=== PATIENT | female | born 1970 | race Caucasian/White ===

== ENCOUNTER 2016-10-31 11:34 | Emergency (ER) | payer MEDICAID ==
--- NOTE | 2016-10-31 12:54 | EDPHY ---
H & P Smoking Status: Current every day smoker Time Seen by Provider: 10/31/16 12:35 HPI/ROS: CHIEF COMPLAINT: Multiple open wounds from substance abuse and low back pain HISTORY OF PRESENT ILLNESS: 46-year-old female presents to the emergency department by private vehicle concerns about multiple open wounds to her upper extremities and her left breast. The patient has a history of IV heroin abuse. She was sober for many years and then relapsed 2 days ago. She has had multiple open sores that are not healing and becoming increasingly painful. She is starting to pick at them and trying to cut the open to help relieve pressure. She denies fevers or chills. Denies any other reported trauma. She is also complaining of some low back pain. She has a history of chronic pain in her back but she is concerned that she may have a kidney infection. She has no urinary symptoms. No nausea or vomiting. No chest pain or difficulty breathing. REVIEW OF SYSTEMS: Constitutional: No fever, no chills. Eyes: No double or blurry vision. ENT: No sore throat. Respiratory: No cough, no shortness of breath. Cardiac: No chest pain. Gastrointestinal: No abdominal pain, vomiting or diarrhea. Genitourinary: No dysuria. Musculoskeletal: Low back pain. No neck pain. Skin: No rashes. Neurological: No headache. (Anabella Keenan) Past Medical/Surgical History: Neuropathy, plantar fasciitis, IV heroin abuse, chronic pain (Anabella Keenan) Social History: Single and lives in [place] (Anabella Keenan) Physical Exam: General Appearance: Alert, anxious. Afebrile temperature 36.5. Eyes: Pupils equal and round. Extraocular motions are all intact. ENT: Mouth: Mucous membranes moist. Respiratory: No wheezing, rhonchi, or rales, lungs are clear to auscultation. Cardiovascular: Regular rate and rhythm. Gastrointestinal: Abdomen is soft and nontender, no masses, no rebound or guarding, bowel sounds normal. Neurological: Alert and oriented x 3, cranial nerves II through XII grossly intact Skin: Multiple areas of excoriation to the upper extremities with some surrounding redness. No obvious palpable abscess. Diffusely tender to palpate. No signs of compartment syndrome. No lymphangitis. Full range of motion of her upper extremities. No signs of septic joint. There is also multiple excoriated lesions noted to the anterior aspect of the left breast just above the nipple. It is tender to palpate. There is no lymphangitis. Musculoskeletal: Nontender to palpate along the cervical, thoracic or lumbar spine. Neck is supple. Extremities: Full range of motion and no peripheral edema. See skin described above. Psychiatric: Patient is oriented X 3, there is no agitation. (Anabella Keenan) Constitutional: Initial Vital Signs Temperature (C) 36.5 C 10/31/16 11:38 Heart Rate 79 10/31/16 11:38 Respiratory Rate 20 10/31/16 11:38 Blood Pressure 126/65 H 10/31/16 11:38 O2 Sat (%) 97 10/31/16 11:38 O2 Delivery Mode Room Air Allergies/Adverse Reactions: quetiapine fumarate [From Seroquel] Allergy (Mild, Verified 10/31/16 11:38) dystonia Home Medications: Medication Instructions Recorded oxyCODONE IR [Oxycodone Ir (*)] 15 mg PO 5XD 12/11/10 Codeine/Butalbital/ASA/Caffein 1 each PO AD PRN 09/05/11 [FIORINAL WITH CODEINE #3 CAP] Morphine Sulfate [Avinza 30 mg] 30 mg PO TID PRN 09/05/11 Promethazine HCl [Phenergan 50mg 50 mg PO AD PRN 08/01/12 tab] KLONOPIN PO HS 03/25/14 Cephalexin [Keflex] 500 mg PO QID #28 cap 10/31/16 Sulfamethox/Tmp 800/160 mg 1 tab PO BID #14 tab 10/31/16 [Bactrim DS] Medical Decision Making ED Course/Re-evaluation: 46-year-old female with a history of substance abuse presents to the emergency department with multiple open wounds in source to upper extremities and left breast. I do not think this patient needs IV antibiotics. There is no signs of obvious abscess or anything to drain. She will be started on antibiotics. The patient was complaining of back pain although she does have a history of chronic back pain. She is worried about possible kidney infection. We are awaiting urine specimen. Urinalysis reveals no signs of infection. Upper extremities reveal no signs of compartment syndrome. The patient was given primary care referral. (Anabella Keenan) Differential Diagnosis: Including but not limited to cellulitis, abscess, necrotizing fasciitis, compartment syndrome (Anabella Keenan) Other Provider: The patient was evaluated and managed by the physician assistant finance director. I have reviewed this chart and I agree with the findings and plan of care as documented , as indicated by my signature. I am the secondary supervising physician. ( Kay Hernandez) Departure - Departure Disposition: Home, Routine, Self-Care Clinical Impression: Substance abuse, Cellulitis Condition: Good Instructions: Cellulitis (ED), Polysubstance Abuse (ED) Additional Instructions: Keflex and Bactrim as directed for 1 week. Please talk picking at the wounds as this may cause further infection. Apply warm compresses as discussed. Stop abusing drugs. Referrals: [facility] [Outside] - As per Instructions Kami Gay MD [Primary Care Provider] - 1-2 days without fail Prescriptions: Cephalexin [Keflex] 500 mg PO QID #28 cap Sulfamethox/Tmp 800/160 mg [Bactrim DS] 1 tab PO BID #14 tab
[2016-10-31 13:06] LABS: COLOR AMBER; LEUKOCYTE ESTERASE,URINE TRACE (NEGATIVE); NITRITE,URINE NEGATIVE (NEGATIVE)
[2016-10-31 13:11] LABS: BACTERIA 1+ /hpf (NONE SEEN); MUCUS TRACE /lpf (NONE-1+)
[2016-10-31 13:12] LABS: RBC,URINE NONE SEEN /hpf (0-3)
[2016-10-31 13:23] VITALS: TEMP 97.5
[2016-10-31 14:06] VITALS: BP 115/80; PULSE 78; RESP 16; O2SAT 95
== END 2016-10-31 14:12 | disposition home or self-care (01) ==
DX: L03.119 Cellulitis of unspecified part of limb (principal); F19.10 Other psychoactive substance abuse, uncomplicated; F17.200 Nicotine dependence, unspecified, uncomplicated

== ENCOUNTER 2017-06-03 07:00 | Emergency (ER) | payer MEDICAID ==
[2017-06-03 07:08] VITALS: RESP 16
--- NOTE | 2017-06-03 07:11 | EDPHY ---
H & P Stated Complaint: Med clear for [facility], sores on hands Time Seen by Provider: 06/03/17 07:09 HPI/ROS: CHIEF COMPLAINT: Hand sores HISTORY OF PRESENT ILLNESS: The patient is a 46 y/o female with a history of substance abuse arriving via [facility] for medical clearance due to sores on her hands. She was seen here in October for similar sores and was started on antibiotics. She tells me she relapsed onto IV drugs 5 days ago. She believes the sores on her hands are related to a fungal infection, though she was never started on a fungal treatment. She says she has been on antibiotics 7 times since her visit here 7 months ago, most recently 1 month ago. She complains of pain at the site of some of her lesions particularly the site on her right hand. She admits to occasionally trying to open these lesions. She has not had drainage from them recently. She states that she has requested a referral to a specialist, such as Dermatology or Infectious Disease, but that her primary care provider has not given her 1 because of the belief that these lesions are related to IV drug abuse. She also complains of a hoarse voice. She has a mild cough, no shortness of breath. She has not been aware of fever. REVIEW OF SYSTEMS: A ten point review of systems was performed and is negative with the exception of the items mentioned in the HPI. Past medical history: Chronic pain, substance abuse - IV heroin Past surgical history: Noncontributory Family history: Noncontributory Social history: Substance abuse. 3 cigarettes per day. Denies alcohol use. Lives in [place]. PCP: [facility]. General Appearance: Somnolent but arouses to spoken voice. Vital signs reviewed. Blood pressure 155/98. Poor personal hygiene. Eyes: Pupils equal and round, no conjunctival injection, no discharge. Anicteric. ENT, Mouth: Mucous membranes are dry, mild oropharyngeal erythema without edema. Hoarse voice. Neck: No lymphadenopathy, supple. Respiratory: Lungs are clear to auscultation; no wheezes, rales, or rhonchi. Cardiovascular: Regular rate and rhythm; no murmur, rub, or gallop. Gastrointestinal: Abdomen is soft and nontender, no masses or organomegaly. Skin: Warm and dry, no rashes on exposed skin, normal color. Multiple scabbed lesions over both arms, some with surrounding erythema and mild warmth. No fluctuance. No purulent drainage. There is a 1.5 x 2 cm area of erythema on the posterior aspect of her right hand. This was initially covered by a Band- Aid. There is some granulation tissue in the central portion of this region. Again, no fluctuance or active purulent drainage. Back: Nontender to palpation over the thoracolumbar spine. No CVAT. Extremities: No lower extremity edema, no calf tenderness or swelling. No lesions noted on the lower extremities, no lower extremity track koch including examination of the feet and between the toes. Neurological: Moving all four extremities easily and equally. Psychiatric: Normal affect. No agitation. - Personal History LMP (Females 10-55): Irregular Current Tetanus/Diphtheria Vaccine: Yes Current Tetanus Diphtheria and Acellular Pertussis (TDAP): Yes - Medical/Surgical History Hx Asthma: No Hx Chronic Respiratory Disease: No Hx Diabetes: No Hx Cardiac Disease: No Hx Renal Disease: No Hx Cirrhosis: No Hx Alcoholism: No Hx HIV/AIDS: No Hx Splenectomy or Spleen Trauma: No Other PMH: neuropathy, plantar fascitis, CHRONIC PAIN - Social History Smoking Status: Current every day smoker Constitutional: Initial Vital Signs Temperature (C) 36.5 C 06/03/17 07:03 Heart Rate 65 06/03/17 07:03 Respiratory Rate 16 06/03/17 07:03 Blood Pressure 155/98 H 06/03/17 07:03 O2 Sat (%) 97 06/03/17 07:03 O2 Delivery Mode Room Air Allergies/Adverse Reactions: quetiapine fumarate [From Seroquel] Allergy (Mild, Verified 06/03/17 07:03) dystonia Home Medications: Medication Instructions Recorded oxyCODONE IR [Oxycodone Ir (*)] 15 mg PO 5XD 12/11/10 Codeine/Butalbital/ASA/Caffein 1 each PO AD PRN 09/05/11 [FIORINAL WITH CODEINE #3 CAP] Morphine Sulfate [Avinza 30 mg] 30 mg PO TID PRN 09/05/11 Promethazine HCl [Phenergan 50mg 50 mg PO AD PRN 08/01/12 tab] KLONOPIN PO HS 03/25/14 Cephalexin [Keflex] 500 mg PO QID #28 cap 10/31/16 Sulfamethox/Tmp 800/160 mg 1 tab PO BID #14 tab 10/31/16 [Bactrim DS] Doxycycline Hyclate [Doxycycline] 100 mg PO BID #14 cap 06/03/17 Medical Decision Making ED Course/Re-evaluation: This is a 46 y/o female with a history of IV drug abuse who presents in the custody of PD with scattered scabbed lesions on both arms and hands. She is afebrile here. Some lesions are warm and mildly erythematous, but there is no evidence of abscess. These are consistent with IV drug abuse. I counseled her to stop injecting to prevent recurrent and worsening sores. I will start her on doxycycline and discharge her with referral to ID to determine best long- management since she reports this is her 8th time on antibiotics in the last 7 months. In the past she is taking Keflex and Bactrim with no improvement. I tend to agree with her primary care provider, who feels that these lesions would clear up if she stops IVDA. I think that poor personal hygiene is also an issue. I do not see signs of bacterial endocarditis or other serious infection on physical exam. Return precautions discussed. She is noted to be hypertensive in the emergency department. She also appears somewhat dehydrated. I am encouraging oral fluids. She has a slightly hoarse voice but does not complain of sore throat. Her throat is mildly erythematous. I do not feel that this needs additional treatment. There is no airway compromise. She is not hypoxic and does not complain of feeling shortness of breath. She has not had chest pain. I do not suspect influenza or pneumonia. She is in police custody. Departure - Departure Disposition: Home, Routine, Self-Care Clinical Impression: Substance abuse Cellulitis Qualifiers: Site of cellulitis: extremity Site of cellulitis of extremity: upper extremity Laterality: unspecified laterality Qualified Code(s): L03.119 - Cellulitis of unspecified part of limb Condition: Good Instructions: Doxycycline (By mouth), Cellulitis (ED), Polysubstance Abuse (ED) Additional Instructions: 1. Take doxycycline as prescribed. Be sure to complete entire prescription. 2. Use Tylenol or ibuprofen as directed on the packaging if needed for fever or pain. 3. Follow up with infectious disease doctor and your primary care physician next week. 4. Stop abusing drugs. Referrals: Kami Gay MD [Primary Care Provider] - As per Instructions Margarita Smith MD [Medical Doctor] - As per Instructions Prescriptions: Doxycycline Hyclate [Doxycycline] 100 mg PO BID #14 cap Report Scribed for: Kay Hernandez Report Scribed by: Emi Jackson Date of Report: 06/03/17 Time of Report: 07:35 Physician Review and Approval Statement: 06/03/17 07:11 Portions of this note were transcribed by the biomedical engineering director. I, Dr. Kay Hernandez, personally performed the history, physical exam, and medical decision- making; and confirmed the accuracy of the information in the transcribed note.
[2017-06-03 07:58] VITALS: BP 110/75; PULSE 78; TEMP 96.8; O2SAT 100
== END 2017-06-03 08:00 ==
DX: L03.114 Cellulitis of left upper limb (principal); L03.113 Cellulitis of right upper limb; F19.10 Other psychoactive substance abuse, uncomplicated; F17.210 Nicotine dependence, cigarettes, uncomplicated

== ENCOUNTER 2017-06-20 22:31 | Emergency (ER) | payer MEDICAID ==
[2017-06-20 22:38] VITALS: BP 141/78; PULSE 76; RESP 18; TEMP 97.5
[2017-06-20] MEDS ORDERED: ONDANSETRON DISINTEGRATING 4 MG TAB PO ONE (23:21)
[2017-06-20] MEDS ORDERED: ONDANSETRON DISINTEGRATING 4 MG TAB ONE (23:22)
--- NOTE | 2017-06-20 23:32 | EDPHY ---
H & P Stated Complaint: c/o ongoing nausea x 3 days Time Seen by Provider: 06/20/17 23:01 HPI/ROS: Chief Complaint: Nausea, skin abscess HPI: 46-year-old woman with a history of IV drug abuse presenting with 3-4 days of nausea, no vomiting. Patient is also complaining a multiple lesions on her arms. These have been treated for multiple many months. She has taken multiple doses of Bactrim Keflex. Patient states she has had a worsening lesion in her left forearm for the last week or so. She states she has not used any IV drugs since March 25. She is continuing to scratching pick at them and squeeze the try to get the infection out however. Denies any fevers or chills. No abdominal pain. No chest pain or shortness of breath. ROS: 10 point Review of Systems is negative except as noted in the HPI. PMH: IV drug abuse, hepatitis-C, cellulitis Social History: Positive smoking Family History: non-contributory Physical Exam: Gen: Awake, Alert, No Distress HEENT: Nose: no rhinorrhea Eyes: PERRLA, EOMI Mouth: Moist mucosa Neck: Supple, no JVD Chest: nontender, lungs clear to auscultation Heart: S1, S2 normal, no murmur Abd: Soft, non-tender, no guarding Back: no CVA tenderness, no midline tenderness Ext: no edema, non-tender, she has got multiple excoriated scabbed over lesions on bilateral arms and legs. There is a small area Estee in her left antecubital region approximately 1.5 cm in diameter. There is no surrounding erythema. There is fluctuance but no pointing. Skin: no rash Neuro: CN II-XII intact, Sensation grossly intact, Strength 5/5 in bilateral upper and lower extremities - Medical/Surgical History Hx Asthma: No Hx Chronic Respiratory Disease: No Hx Diabetes: No Hx Cardiac Disease: No Hx Renal Disease: No Hx Cirrhosis: No Hx Alcoholism: No Hx HIV/AIDS: No Hx Splenectomy or Spleen Trauma: No Other PMH: neuropathy bilat feet/hands, plantar fascitis, CHRONIC PAIN, hep c - Social History Smoking Status: Current every day smoker Constitutional: Initial Vital Signs Temperature (C) 36.4 C 06/20/17 22:34 Heart Rate 76 06/20/17 22:34 Respiratory Rate 18 06/20/17 22:34 Blood Pressure 141/78 H 06/20/17 22:34 O2 Sat (%) 99 06/20/17 22:34 O2 Delivery Mode Room Air Allergies/Adverse Reactions: quetiapine fumarate [From Seroquel] Allergy (Mild, Verified 06/20/17 22:38) dystonia Home Medications: Medication Instructions Recorded Codeine/Butalbital/ASA/Caffein 1 each PO AD PRN 09/05/11 [FIORINAL WITH CODEINE #3 CAP] Promethazine HCl [Phenergan 50mg 50 mg PO AD PRN 08/01/12 tab] Sulfamethox/Tmp 800/160 mg 1 tab PO BID #14 tab 10/31/16 [Bactrim DS] Doxycycline Hyclate [Doxycycline] 100 mg PO BID #14 cap 06/03/17 GABAPENTIN 06/20/17 Medical Decision Making Procedures: Procedure: Abscess drainage. The patient's abscess was located on the left arm. I obtained verbal consent from the patient to drain the abscess who was informed about the possibility of bleeding and pain. The abscess was incised with 11 blade scalpel and a small amount of purulent drainage was expressed. I irrigated the wound and placed some packing. The patient tolerated the procedure well. The procedure was performed by myself. ED Course/Re-evaluation: 46-year-old with a abscess her left forearm. Is likely sugars abscess but the patient denies IV drug use a Luana. She is continuing to scratching pick her lesions in this could also be secondary to that manipulation. There is no surrounding cellulitis at this time. There is no indication for antibiotics. She has an appoint with her doctor in 4 days. I have I and D did place some packing. I have told her to leave the dressing in place. She will follow up with physician and return for worsening. I have also given her Zofran here will send her home with a prepack. - Data Points Medications Given: Discontinued Medications Ondansetron HCl (Zofran Odt) 4 mg PO EDNOW ONE Stop: 06/20/17 23:22 Last Admin: 06/20/17 23:23 Dose: 4 mg Departure - Departure Disposition: Home, Routine, Self-Care Clinical Impression: Abscess, Nausea Condition: Good Instructions: Abscess (ED), Ondansetron (By mouth) Additional Instructions: You may take Zofran as needed for nausea. Leave the dressing in place until your seen by her primary care physician on the 4th. Return emergency department for increasing redness, fevers, chills, lightheadedness, fainting, uncontrolled vomiting, or any other concerns. Referrals: Kami Gay MD [Primary Care Provider] - As per Instructions
[2017-06-20] MEDS ORDERED: ONDANSETRON 4MG PREPACK#2 BTL TAKEHOME ONE (23:36)
[2017-06-20 23:54] VITALS: O2SAT 96
== END 2017-06-20 23:53 | disposition home or self-care (01) ==
PROC: 0H9DXZZ Drainage of Right Lower Arm Skin, External Approach (ICD-10-PCS; principal; 2017-06-20)
DX: L02.414 Cutaneous abscess of left upper limb (principal); F17.200 Nicotine dependence, unspecified, uncomplicated; R11.0 Nausea

== ENCOUNTER 2017-08-20 00:47 | Emergency (ER) | payer MEDICAID ==
--- NOTE | 2017-08-20 00:55 | EDPHY ---
H & P HPI/ROS: HPI CHIEF COMPLAINT: Heart fluttering, anxiety, peripheral edema HISTORY OF PRESENT ILLNESS: This patient very pleasant 46-year-old female, she has a history of IV drug use, last use in March of last year, hepatitis-C, which she tells me is cured, chronic pain, she comes emergency room tonight for intermittent palpitations over the past 10 days. Additionally she reports that she has noticed her whole body swelling intermittently over the past 10 days and then "pees it out "she states that her whole body swells and then gradually gets better with time. She denies any shortness of breath or chest pain. Denies pleuritic pain. She is adamant she has not done any drugs since March. She decided come the emergency room as she felt palpitations this evening and additionally thought she is more swollen than normal. This caused her anxiety and decided come for evaluation. Past Medical History: IV drug use, hepatitis-C, cellulitis, chronic pain, plantar fasciitis Past Surgical History: No recent surgical history. Social History: History of IV drug use, hepatitis-C. Denies current use of drugs. Denies being homeless. Family History: Noncontributory ROS REVIEW OF SYSTEMS: A comprehensive 10 point review of systems is otherwise negative aside from elements mentioned in the history of present illness. Exam Constitutional appears well nontoxic triage nursing summary reviewed, vital signs reviewed, awake/alert. Eyes normal conjunctivae and sclera, EOMI, PERRLA. HENT normal inspection, atraumatic, moist mucus membranes, no epistaxis, neck supple/ no meningismus, no raccoon eyes. Respiratory clear to auscultation bilaterally, normal breath sounds, no respiratory distress, no wheezing. Cardiovascular I do not appreciate a murmur on exam, rate normal, regular rhythm, no murmur, no edema, distal pulses normal. Gastrointestinal soft, non-tender, no rebound, no guarding, normal bowel sounds, no distension, no pulsatile mass. Genitourinary no CVA tenderness. Musculoskeletal no midline vertebral tenderness, full range of motion, no calf swelling, no tenderness of extremities, no meningismus, good pulses, neurovascularly intact. Skin extensive excoriations in scar sites down arms, various areas of dark pain med to the skin, no talon abscess or pus or cellulitis seen, no visible fresh track koch. Bilateral lower extremity does not show any significant edema. Neurologic awake, alert and oriented x 3, AAOx3, moves all 4 extremities equally, motor intact, sensory intact, CN II-XII intact, normal cerebellar, normal vision, normal speech. Psychiatric normal mood/affect. Heme/Lymph/Immune no lymphadenopathy. Differential Diagnosis: Includes but is not limited to in a particular order cardiac arrhythmia, acute coronary syndrome, PE, pneumonia, pleural effusion, endocarditis. Medical Decision Making: Plan for this patient IV establishment blood draw, full teletypesetter monitor, obtain EKG, chest x-ray, check troponin, TSH, and re- evaluate. Re-evaluation: EKG interpretation by me on record in [employer] system. Impression time of EKG 1:12 a.m., sinus rhythm rate of [address] ST depression. No significant T-wave abnormalities. Unremarkable nonischemic EKG. Similar to EKG dated 06/10/2011 0243: Patient re-evaluated resting comfortably no acute distress. Blood work has been reviewed this shows a normal troponin, negative D-dimer. EKG is nonischemic and there is no signs of cardiac arrhythmia on EKG. She has been on the teletypesetter monitor in the emergency room for several hours without any evidence of arrhythmia. She has no chest pain or shortness of breath. Allow her to be discharged from the emergency room I do recommend she follows up with Cardiology on outpatient basis for palpitations. Additionally I did discussed return precautions with her. She understands return emergency develops chest pain, shortness of breath, severe palpitations, fever vomiting. TSH was normal. Additionally as for her skin lesions I will prescribe her Keflex. She should follow up with primary care doctor about this. Source: Patient - Medical/Surgical History Hx Asthma: No Hx Chronic Respiratory Disease: No Hx Diabetes: No Hx Cardiac Disease: No Hx Renal Disease: No Hx Cirrhosis: No Hx Alcoholism: No Hx HIV/AIDS: No Hx Splenectomy or Spleen Trauma: No Other PMH: neuropathy bilat feet/hands, plantar fascitis, CHRONIC PAIN, hep c - Social History Smoking Status: Current every day smoker Constitutional: Initial Vital Signs Temperature (C) 36.9 C 08/20/17 00:52 Heart Rate 93 08/20/17 00:52 Respiratory Rate 16 08/20/17 00:52 Blood Pressure 139/89 H 08/20/17 00:52 O2 Sat (%) 94 08/20/17 00:52 O2 Delivery Mode Room Air Allergies/Adverse Reactions: quetiapine fumarate [From Seroquel] Allergy (Mild, Verified 06/20/17 22:38) dystonia Home Medications: Medication Instructions Recorded Promethazine HCl [Phenergan 50mg 50 mg PO AD PRN 08/01/12 tab] GABAPENTIN 06/20/17 Cephalexin [Keflex] 500 mg PO Q6H #28 cap 08/20/17 Medical Decision Making - Data Points Laboratory Results: Laboratory Results 08/20/17 01:30 08/20/17 01:30 08/20/17 08/20/17 08/20/17 01:50 01:30 01:30 WBC RBC Hgb Hct MCV MCH MCHC RDW Plt Count MPV Neut % (Auto) Lymph % (Auto) [place] % (Auto) Eos % (Auto) Baso % (Auto) Nucleat RBC Rel Count Absolute Neuts (auto) Absolute Lymphs (auto) Absolute Monos (auto) Absolute Eos (auto) Absolute Basos (auto) Absolute Nucleated RBC Immature Gran % Immature Gran # PT 14.0 SEC SEC (12.0-15.0) INR 1.06 (0.83-1.16) APTT 27.0 SEC SEC (23.0-38.0) D-Dimer 0.39 ug/mLFEU ug/mLFEU (0.00-0.50) Sodium 144 mEq/L mEq/L (135-145) Potassium 3.8 mEq/L mEq/L (3.5-5.2) Chloride 104 mEq/L mEq/L (97-110) Carbon Dioxide 23 mEq/l mEq/l (22-31) Anion Gap 17 mEq/L H mEq/L (8-16) BUN 16 mg/dL mg/dL (7-23) Creatinine 0.7 mg/dL mg/dL (0.6-1.0) Estimated GFR > 60 Glucose 114 mg/dL H mg/dL (70-100) Calcium 9.6 mg/dL mg/dL (8.5-10.4) Magnesium 1.7 mg/dL mg/dL (1.6-2.3) Total Bilirubin 0.5 mg/dL mg/dL (0.1-1.4) Conjugated Bilirubin 0.2 mg/dL mg/dL (0.0-0.5) Unconjugated Bilirubin 0.3 mg/dL mg/dL (0.0-1.1) AST 21 IU/L IU/L (14-46) ALT 25 IU/L IU/L (9-52) Alkaline Phosphatase 88 IU/L IU/L (38-126) Creatine Kinase 38 IU/L IU/L (0-156) CK-MB (CK-2) Fraction 0.56 ng/mL ng/mL (0.00-3.19) Troponin I < 0.012 ng/mL ng/mL (0.000-0.034) NT-Pro-B Natriuret Pep 148 pg/mL H pg/mL (0-125) Total Protein 7.4 g/dL g/dL (6.3-8.2) Albumin 4.1 g/dL g/dL (3.5-5.0) TSH 2.940 uIU/mL uIU/mL (0.465-4.680) Urine Color YELLOW Urine Appearance CLEAR Urine pH 5.0 (5.0-7.5) Ur Specific [place] 1.023 (1.002-1.030) Urine Protein NEGATIVE (NEGATIVE) Urine Ketones NEGATIVE (NEGATIVE) Urine Blood NEGATIVE (NEGATIVE) Urine Nitrate NEGATIVE (NEGATIVE) Urine Bilirubin NEGATIVE (NEGATIVE) Urine Urobilinogen NEGATIVE EU EU (0.2-1.0) Ur Leukocyte Esterase TRACE H (NEGATIVE) Urine RBC 1-3 /hpf /hpf (0-3) Urine WBC 1-3 /hpf /hpf (0-3) Ur Epithelial Cells TRACE /lpf /lpf (NONE-1+) Urine Mucus TRACE /lpf /lpf (NONE-1+) Urine Glucose NEGATIVE (NEGATIVE) Urine Opiates Screen NEGATIVE (NEGATIVE) Urine Barbiturates NEGATIVE (NEGATIVE) Ur Phencyclidine Scrn NEGATIVE (NEGATIVE) Ur Amphetamine Screen NEGATIVE (NEGATIVE) U Benzodiazepines Scrn NEGATIVE (NEGATIVE) Urine Cocaine Screen NEGATIVE (NEGATIVE) U Marijuana (THC) Screen NEGATIVE (NEGATIVE) 08/20/17 01:30 WBC 9.72 10^3/uL H 10^3/uL (3.80-9.50) RBC 4.75 10^6/uL 10^6/uL (4.18-5.33) Hgb 15.1 g/dL g/dL (12.6-16.3) Hct 41.2 % % (38.0-47.0) MCV 86.7 fL fL (81.5-99.8) MCH 31.8 pg pg (27.9-34.1) MCHC 36.7 g/dL g/dL (32.4-36.7) RDW 13.0 % % (11.5-15.2) Plt Count 259 10^3/uL 10^3/uL (150-400) MPV 8.6 fL L fL (8.7-11.7) Neut % (Auto) 37.2 % L % (39.3-74.2) Lymph % (Auto) 54.3 % H % (15.0-45.0) [place] % (Auto) 5.7 % % (4.5-13.0) Eos % (Auto) 2.0 % % (0.6-7.6) Baso % (Auto) 0.6 % % (0.3-1.7) Nucleat RBC Rel Count 0.0 % % (0.0-0.2) Absolute Neuts (auto) 3.62 10^3/uL 10^3/uL (1.70-6.50) Absolute Lymphs (auto) 5.28 10^3/uL H 10^3/uL (1.00-3.00) Absolute Monos (auto) 0.55 10^3/uL 10^3/uL (0.30-0.80) Absolute Eos (auto) 0.19 10^3/uL 10^3/uL (0.03-0.40) Absolute Basos (auto) 0.06 10^3/uL 10^3/uL (0.02-0.10) Absolute Nucleated RBC 0.00 10^3/uL 10^3/uL (0-0.01) Immature Gran % 0.2 % % (0.0-1.1) Immature Gran # 0.02 10^3/uL 10^3/uL (0.00-0.10) PT INR APTT D-Dimer Sodium Potassium Chloride Carbon Dioxide Anion Gap BUN Creatinine Estimated GFR Glucose Calcium Magnesium Total Bilirubin Conjugated Bilirubin Unconjugated Bilirubin AST ALT Alkaline Phosphatase Creatine Kinase CK-MB (CK-2) Fraction Troponin I NT-Pro-B Natriuret Pep Total Protein Albumin TSH Urine Color Urine Appearance Urine pH Ur Specific [place] Urine Protein Urine Ketones Urine Blood Urine Nitrate Urine Bilirubin Urine Urobilinogen Ur Leukocyte Esterase Urine RBC Urine WBC Ur Epithelial Cells Urine Mucus Urine Glucose Urine Opiates Screen Urine Barbiturates Ur Phencyclidine Scrn Ur Amphetamine Screen U Benzodiazepines Scrn Urine Cocaine Screen U Marijuana (THC) Screen Departure - Departure Disposition: Home, Routine, Self-Care Clinical Impression: Palpitations Condition: Good Instructions: Heart Palpitations (ED) Additional Instructions: 1. Please follow up with Cardiology. Please call their for follow-up appointment 2. Return emergency room if you have worsening symptoms this includes shortness of breath, chest pain, worsening swelling Referrals: Kami Gay MD [Primary Care Provider] - As per Instructions Joao Richardson MD [Medical Doctor] - As per Instructions Prescriptions: Cephalexin [Keflex] 500 mg PO Q6H #28 cap
[2017-08-20 00:58] VITALS: RESP 16
--- NOTE | 2017-08-20 01:15 | CPEKG ---
Heart Rate: 88 RR Interval: 682 P-R Interval: 168 QRSD Interval: 92 QT Interval: 364 QTC Interval: 441 P [place]: 55 QRS [place]: -4 T Wave [place]: 54 EKG Severity - BORDERLINE ECG - EKG Impression: SINUS RHYTHM EKG Impression: PROBABLE LEFT ATRIAL ABNORMALITY Electronically Signed By: Pio Maynard 20-Aug-2017 07:19:19
[2017-08-20 01:39] LABS: PLATELET COUNT 259 10^3/uL (150-400)
[2017-08-20 01:48] LABS: INR 1.06 (0.83-1.16)
[2017-08-20 01:54] LABS: CREATINE KINASE 38 IU/L (0-156)
[2017-08-20 02:52] VITALS: BP 135/76; PULSE 77; TEMP 98.1; O2SAT 97
== END 2017-08-20 02:52 | disposition home or self-care (01) ==
DX: R00.2 Palpitations (principal); F17.200 Nicotine dependence, unspecified, uncomplicated
CPT/HCPCS: 80305

== ENCOUNTER 2017-09-27 19:46 | Emergency (ER) | payer MEDICAID ==
[2017-09-27 20:02] VITALS: TEMP 97.5; O2SAT 95
--- NOTE | 2017-09-27 20:11 | EDPHY ---
H & P Stated Complaint: Cough, SOB, generalized ache, itchy spots on armpit Time Seen by Provider: 09/27/17 20:10 HPI/ROS: HPI: This is a 46-year-old female who presents with Chief Complaint: Cough, fatigue Location: Chest Quality: Productive Cough Duration: 7-10 days Signs and Symptoms: No fever, no chills, + fatigue, no sore throat, no neck stiffness, no chest pain, + shortness of breath with exertion Timing: Acute Severity: Moderate Context: Patient has a history of IV methamphetamine use and tobacco use presents with complaints of productive cough that has been worsening over the last 7-10 days accompanied by fatigue. Denies fever/chills/neck stiffness/sore throat/body aches. Patient reports that she feels short of breath with exertion and tires easily. Denies any lower extremity edema/calf pain. Denies history of asthma/COPD. LMP 2-3 weeks ago. Patient has tried nothing for her symptoms. Did not receive influenza vaccine this year. She also complains of small bumps in her right armpit that have been there for approximately 8 days. She has tried nothing for the symptoms. Denies any warmth/tenderness/drainage. Patient reports that she has been given 3 rounds of Keflex and Bactrim for the sores on her arms; last time being 1 week ago. Modifying Factors: None Comment: ROS: see HPI Constitutional: No fever, no chills, no weight loss Eyes: No blurred vision Respiratory: + shortness of breath, + cough Cardiovascular: No chest pain Gastrointestinal: No nausea, no vomiting, no diarrhea Genitourinary: No dysuria Extremities: No myalgias Neurologic: No weakness, no numbness Skin: No rashes Hematologic: No bruising, no bleeding MEDICAL/SURGICAL/SOCIAL HISTORY: Medical history: neuropathy bilat feet/hands, plantar fascitis, CHRONIC PAIN, hep c, IV drug use, methamphetamine use Surgical history: Denies Social history: Homeless. CONSTITUTIONAL: Chronically ill-appearing polite and cooperative middle-aged white female, awake and alert, no obvious distress HEENT: Atraumatic and normocephalic, PERRL, EOMI. Tympanic membranes clear. Oropharynx clear, no exudate and moist pink mucosa. Airway patent. No lymphadenopathy. No meningismus. Cardiovascular: Normal S1/S2, regular rate, regular rhythm, without murmur rub or gallop. PULMONARY/CHEST: Symmetrical and nontender. Clear to auscultation bilaterally. Good air movement. No accessory muscle usage. ABDOMEN: Soft, nondistended, nontender, no rebound, no guarding, no peritoneal signs, no masses or organomegaly. No CVAT. EXTREMITIES: 2/2 pulses, strength 5/5, no deformities, no clubbing, no cyanosis or edema. Negative Homans sign. No palpable cords. No varicose vein. NEUROLOGICAL: no focal neuro deficits. GCS 15. SKIN: Warm and dry, 4 raise indurated lesions in right axilla; no fluctuance. Multiple scabs and cuts noted to both forearms. no erythema. no rash. Good capillary refill. Source: Patient Exam Limitations: No limitations - Personal History LMP (Females 10-55): 15-21 Days Ago Current Tetanus Diphtheria and Acellular Pertussis (TDAP): Yes - Medical/Surgical History Hx Asthma: No Hx Chronic Respiratory Disease: No Hx Diabetes: No Hx Cardiac Disease: No Hx Renal Disease: No Hx Cirrhosis: No Hx Alcoholism: No Hx HIV/AIDS: No Hx Splenectomy or Spleen Trauma: No Other PMH: neuropathy bilat feet/hands, plantar fascitis, CHRONIC PAIN, hep c - Social History Smoking Status: Current every day smoker Constitutional: Initial Vital Signs Temperature (C) 36.4 C 09/27/17 20:00 Heart Rate 81 09/27/17 20:00 Respiratory Rate 20 09/27/17 20:00 Blood Pressure 116/74 09/27/17 20:00 O2 Sat (%) 95 09/27/17 20:00 O2 Delivery Mode Room Air Allergies/Adverse Reactions: quetiapine fumarate [From Seroquel] Allergy (Mild, Verified 09/27/17 19:59) dystonia Home Medications: Medication Instructions Recorded Promethazine HCl [Phenergan 50mg 50 mg PO AD PRN 08/01/12 tab] GABAPENTIN 06/20/17 Cephalexin [Keflex] 500 mg PO Q6H #28 cap 08/20/17 Albuterol Sulfate [Proair Hfa] 8.5 gm IH Q4 PRN #1 hfa.aer.ad 09/27/17 Benzonatate [Tessalon Pearles (RX)] 100 mg PO Q6 PRN #12 cap 09/27/17 Mupirocin 2% [Bactroban 2%] 1 nadia TP BID #60 g 09/27/17 levOFLOXACIN [levAQUIN (*)] 750 mg PO DAILY #7 tab 09/27/17 Medical Decision Making - Diagnostics Imaging Results: Imaging Impressions Chest X-Ray 09/27/17 20:16 Impression: 1. Possible right upper lobe pneumonia. 2. Recommend follow up. Findings and recommendations discussed with Emergency Department Physician Rod Puller And Coiler, Mirna Balderas PA-C, at 2030 hours, on September 27, 2017. Final report concurs with initial preliminary interpretation. ED Course/Re-evaluation: Chest x-ray and oral medications ordered Discussed obtaining IV labs per patient she politely decline as "she does not want any needles." Called by radiologist as chest x-ray shows early developing right middle lobe infiltrate. Patient is homeless and a tobacco user; will treat with fluoroquinolone for community-acquired pneumonia and unhealthy patient. Given Levaquin and Tessalon Perles. Vital signs stable upon arrival. No hypoxia/tachycardia. Well's Criteria Score = 0; low risk for pulmonary embolism folliculitis noted in right axilla; no fluctuance to I and D; suspect MRSA carrier; given Bactroban for nose, axilla and arms; advised warm compresses and supportive care including do not shave until fully healed. This patient was seen under the supervision of my secondary supervising physician. I evaluated care for this patient independently. Differential Diagnosis: Shortness of breath including but not limited to pulmonary infectious process, COPD, asthma, pulmonary embolus and congestive heart failure. - Data Points Medications Given: Discontinued Medications Benzonatate (Tessalon Pearles) 200 mg PO EDNOW ONE Stop: 09/27/17 20:47 Last Admin: 09/27/17 20:53 Dose: 200 mg Levofloxacin (Levaquin) 750 mg PO EDNOW ONE PRN Reason: Protocol Stop: 09/27/17 20:46 Last Admin: 09/27/17 20:54 Dose: 750 mg Departure - Departure Disposition: Home, Routine, Self-Care Clinical Impression: Folliculitis of right axilla Community acquired pneumonia Qualifiers: Laterality: right Lung location: middle lobe of lung Qualified Code(s): J18.1 - Lobar pneumonia, unspecified organism Condition: Good Instructions: Promethazine (By mouth), Community Acquired Pneumonia (ED), Folliculitis (ED) Additional Instructions: Apply Bactroban to your nares twice a day x5 days. Apply warm compress to the sores in your armpit twice daily x3 days. Apply Bactroban to the sores in your armpit and arms twice daily times 10 days. Do Not shave your armpits until the sores fully healed. Take Levaquin as directed until complete. Use Tessalon Perles as needed for cough. Use albuterol inhaler as needed for shortness of breath/wheezing. Refrain from using methamphetamine. Return at once for any worsening symptoms or concerns. Referrals: Kami Gay MD [Primary Care Provider] - As per Instructions Prescriptions: Albuterol Sulfate [Proair Hfa] 8.5 gm IH Q4 PRN #1 hfa.aer.ad PRN Reason: Wheezing Benzonatate [Tessalon Pearles (RX)] 100 mg PO Q6 PRN #12 cap PRN Reason: Cough, Moderate levOFLOXACIN [levAQUIN (*)] 750 mg PO DAILY #7 tab Mupirocin 2% [Bactroban 2%] 1 nadia TP BID #60 g
[2017-09-27] MEDS ORDERED: BENZONATATE 100 MG CAP PO ONE (20:46)
[2017-09-27] MEDS ORDERED: PROMETHAZINE 25 MG PREPACK #4 BTL TAKEHOME ONE ×2 (21:00)
[2017-09-27 21:14] VITALS: BP 115/60; PULSE 75; RESP 18
== END 2017-09-27 21:14 | disposition home or self-care (01) ==
DX: J18.1 Lobar pneumonia, unspecified organism (principal); L73.9 Follicular disorder, unspecified; F17.200 Nicotine dependence, unspecified, uncomplicated

== ENCOUNTER 2017-10-03 17:09 | Emergency (ER) | payer MEDICAID ==
[2017-10-03 17:16] VITALS: RESP 16; TEMP 97.3
--- NOTE | 2017-10-03 17:29 | EDPHY ---
H & P Stated Complaint: n/v, sob Time Seen by Provider: 10/03/17 17:29 - Personal History LMP (Females 10-55): 15-21 Days Ago Current Tetanus/Diphtheria Vaccine: Unsure Current Tetanus Diphtheria and Acellular Pertussis (TDAP): Unsure - Medical/Surgical History Hx Asthma: No Hx Chronic Respiratory Disease: No Hx Diabetes: No Hx Cardiac Disease: No Hx Renal Disease: No Hx Cirrhosis: No Hx Alcoholism: No Hx HIV/AIDS: No Hx Splenectomy or Spleen Trauma: No Other PMH: neuropathy bilat feet/hands, plantar fascitis, CHRONIC PAIN, hep c, PNA - Social History Smoking Status: Current every day smoker Constitutional: Initial Vital Signs Temperature (C) 36.3 C 10/03/17 17:13 Heart Rate 93 10/03/17 17:13 Respiratory Rate 16 10/03/17 17:13 Blood Pressure 134/71 H 10/03/17 17:13 O2 Sat (%) 93 10/03/17 17:13 O2 Delivery Mode Room Air Allergies/Adverse Reactions: quetiapine fumarate [From Seroquel] Allergy (Mild, Verified 10/03/17 17:12) dystonia Home Medications: Medication Instructions Recorded Promethazine HCl [Phenergan 50mg 50 mg PO AD PRN 08/01/12 tab] GABAPENTIN 06/20/17 Cephalexin [Keflex] 500 mg PO Q6H #28 cap 08/20/17 Albuterol Sulfate [Proair Hfa] 8.5 gm IH Q4 PRN #1 hfa.aer.ad 09/27/17 Benzonatate [Tessalon Pearles (RX)] 100 mg PO Q6 PRN #12 cap 09/27/17 Mupirocin 2% [Bactroban 2%] 1 nadia TP BID #60 g 09/27/17 levOFLOXACIN [levAQUIN (*)] 750 mg PO DAILY #7 tab 09/27/17 Cephalexin [Keflex (RX)] 500 mg PO TID #30 cap 10/03/17 Ondansetron Odt [Zofran Odt 4 mg 4 mg PO Q4 PRN #10 tab 10/03/17 (RX)] Ranitidine HCl [Zantac 75] 150 mg PO DAILY #14 tablet 10/03/17 Medical Decision Making - Diagnostics Imaging Results: Imaging Impressions Abdomen Ultrasound 10/03/17 17:34 Impression: 1. Mildly thickened gallbladder wall, however, this is felt to be due to contraction of the gallbladder. No stones or convincing evidence of cholecystitis. 2. Suspected hepatic steatosis. Dr. Patricia discussed these findings by telephone with Nguyễn Cordon MD on at 1830 hours. Imaging: Discussed imaging studies w/ relay man Radiologist, I viewed and interpreted images myself ED Course/Re-evaluation: CHIEF COMPLAINT: Nausea, vomiting, abdominal pain HISTORY OF PRESENT ILLNESS: The patient is a 46 y/o female with a history of hepatitis C complaining of nausea, vomiting, and abdominal pain. She was diagnosed with pneumonia Saturday, 6 days ago, and sent home on Levaquin. Over the past couple days she has developed nausea, vomiting, and upper abdominal pain. She has associated racing heart. She denies hematemesis, abnormal stool, or any other associated symptoms. She denies history of abdominal surgery. In addition, she reports that her hepatitis C resolved following a . REVIEW OF SYSTEMS: A 10 point review of systems was performed and is negative with the exception of the elements mentioned in the history of present illness. PHYSICAL EXAM: HR, BP, O2 Sat, RR. Temp noted General Appearance: Alert, well hydrated, uncomfortable in appearance. Coughing with a horse voice. Head: Atraumatic without scalp tenderness or obvious injury Eyes: Pupils equal, round, reactive to light and accommodation, EOMI, no trauma , no injection. Ears: Clear bilaterally, no perforation, normal landmarks Nose: Atraumatic, no rhinorrhea, clear. Throat: There is no erythema or exudates, no lesions, normal tonsils, mucus membranes moist. Neck: Supple, nontender, no lymphadenopathy. Respiratory: No retractions, no distress, no wheezes, and no accessory muscle use. Lungs are clear to auscultation bilaterally. Cardiovascular: Regular rate and rhythm, no murmurs, rubs, or gallops. Gastrointestinal: Abdomen is soft, tender with a positive Hearn's sign, non- distended, no masses, no rebound, no guarding, no peritoneal signs. Musculoskeletal: Normal active ROM of all extremities, atraumatic. Neurological: Alert, appropriate, and interactive. Skin: No rashes, good turgor, no nodules on palpation. Past medical history: Hepatitis C, pneumonia Past surgical history: Denies Family history: Non-contributory Social history: Lives in [place], unemployed, medicaid patient DIFFERENTIAL DIAGNOSIS: The differential diagnosis for the patient's abdominal pain included but was not limited to intestinal inflammation due to antibiotics, ovarian cyst, pelvic inflammatory disease, ovarian torsion, urinary tract infection, ectopic , cholecystitis, and appendicitis. MEDICAL DECISION MAKING: The patient is a 46 y/o female with a history of hepatitis C complaining of abdominal pain, nausea, vomiting, and a racing heart. She has been on Levaquin for 6 days for pneumonia. It is possible her symptoms are due to the antibiotics but due to her level of tenderness and her positive Hearn's sign, I would like to further investigate etiology. Plan for labs including CBC, Chem-7, lipase, liver enzymes, and beta-HCG, and abdominal ultrasound. 1750: I was informed that labs are difficult to draw due to her history as an IV drug user. 1830: I spoke with Dr. Patricia regarding this patient's ultrasound. Ultrasound is negative for any acute findings. Labs are pending. 1850: Labs are non-concerning and not indicative of an etiology. Symptoms can most likely be attributed to negative reaction to levofloxacin. 1910: I reassessed patient and found her condition improved. I advised her to discontinue her levofloxacin and start cephalexin. I have also provided her with prescriptions for Zofran and Zantac. She agrees to this course of action. - Data Points Laboratory Results: Laboratory Results 10/03/17 18:30 10/03/17 18:30 10/03/17 10/03/17 10/03/17 18:30 18:30 17:34 WBC 10.63 10^3/uL H 10^3/uL (3.80-9.50) RBC 4.58 10^6/uL 10^6/uL (4.18-5.33) Hgb 14.6 g/dL g/dL (12.6-16.3) Hct 39.6 % % (38.0-47.0) MCV 86.5 fL fL (81.5-99.8) MCH 31.9 pg pg (27.9-34.1) MCHC 36.9 g/dL H g/dL (32.4-36.7) RDW 13.1 % % (11.5-15.2) Plt Count 352 10^3/uL 10^3/uL (150-400) MPV 9.3 fL fL (8.7-11.7) Neut % (Auto) 36.1 % L % (39.3-74.2) Lymph % (Auto) 52.3 % H % (15.0-45.0) [place] % (Auto) 9.2 % % (4.5-13.0) Eos % (Auto) 1.4 % % (0.6-7.6) Baso % (Auto) 0.6 % % (0.3-1.7) Nucleat RBC Rel Count 0.0 % % (0.0-0.2) Absolute Neuts (auto) 3.84 10^3/uL 10^3/uL (1.70-6.50) Absolute Lymphs (auto) 5.56 10^3/uL H 10^3/uL (1.00-3.00) Absolute Monos (auto) 0.98 10^3/uL H 10^3/uL (0.30-0.80) Absolute Eos (auto) 0.15 10^3/uL 10^3/uL (0.03-0.40) Absolute Basos (auto) 0.06 10^3/uL 10^3/uL (0.02-0.10) Absolute Nucleated RBC 0.00 10^3/uL 10^3/uL (0-0.01) Immature Gran % 0.4 % % (0.0-1.1) Immature Gran # 0.04 10^3/uL 10^3/uL (0.00-0.10) Sodium 140 mEq/L mEq/L (135-145) Potassium 4.4 mEq/L mEq/L (3.5-5.2) Chloride 102 mEq/L mEq/L (97-110) Carbon Dioxide 26 mEq/l mEq/l (22-31) Anion Gap 12 mEq/L mEq/L (8-16) BUN 15 mg/dL mg/dL (7-23) Creatinine 0.8 mg/dL mg/dL (0.6-1.0) Estimated GFR > 60 Glucose 84 mg/dL mg/dL (70-100) Calcium 9.4 mg/dL mg/dL (8.5-10.4) Total Bilirubin 0.6 mg/dL mg/dL (0.1-1.4) Conjugated Bilirubin 0.3 mg/dL mg/dL (0.0-0.5) Unconjugated Bilirubin 0.3 mg/dL mg/dL (0.0-1.1) AST 14 IU/L IU/L (14-46) ALT 25 IU/L IU/L (9-52) Alkaline Phosphatase 99 IU/L IU/L (38-126) Total Protein 6.9 g/dL g/dL (6.3-8.2) Albumin 3.7 g/dL g/dL (3.5-5.0) Lipase 113 IU/L IU/L (23-300) Beta HCG, Qual NEGATIVE Medications Given: Discontinued Medications Hydromorphone HCl (Dilaudid) 0.5 mg IVP EDNOW ONE Stop: 10/03/17 17:34 Last Admin: 10/03/17 19:03 Dose: 0.5 mg Sodium Chloride (Ns) 1,000 mls @ 0 mls/hr IV EDNOW ONE; Wide Open PRN Reason: Protocol Stop: 10/03/17 17:34 Last Admin: 10/03/17 19:00 Dose: 1,000 mls Ondansetron HCl (Zofran) 4 mg IVP EDNOW ONE Stop: 10/03/17 17:34 Last Admin: 10/03/17 19:02 Dose: 4 mg Departure - Departure Disposition: Home, Routine, Self-Care Clinical Impression: gastritis secondary to antibiotic usage Condition: Good Instructions: Gastritis (ED) Additional Instructions: 1. Please stop taking levofloxacin. Start taking cephalexin for your pneumonia. Take Zofran as directed as needed for nausea. Take Zantec as directed. 2. Follow-up with your primary care provider for continued symptoms. 3. Return to the emergency department for any worsening of condition. Referrals: Kami Gay MD [Primary Care Provider] - As per Instructions Prescriptions: Cephalexin [Keflex (RX)] 500 mg PO TID #30 cap Ondansetron Odt [Zofran Odt 4 mg (RX)] 4 mg PO Q4 PRN #10 tab PRN Reason: Nausea/Vomiting, Use 1st Ranitidine HCl [Zantac 75] 150 mg PO DAILY #14 tablet Report Scribed for: Nguyễn Cordon Report Scribed by: Estrellita Fowler Date of Report: 10/03/17 Time of Report: 17:51
[2017-10-03] MEDS ORDERED: NS 1,000 ML IV ONE (17:33)
[2017-10-03] MEDS ORDERED: ONDANSETRON 4 MG/2 ML VIAL IVP ONE (17:33)
[2017-10-03] MEDS ORDERED: HYDROmorphONE/DILAUDID 2 MG/ML INJ IVP ONE (17:33)
[2017-10-03 18:42] LABS: PLATELET COUNT 352 10^3/uL (150-400)
[2017-10-03 19:32] VITALS: BP 97/79; PULSE 75; O2SAT 95
== END 2017-10-03 19:30 | disposition home or self-care (01) ==
DX: K29.70 Gastritis, unspecified, without bleeding (principal); T36.8X5A Adverse effect of other systemic antibiotics, initial encounter; F17.200 Nicotine dependence, unspecified, uncomplicated; E86.9 Volume depletion, unspecified
CPT/HCPCS: 96374; J1170; J2405

== ENCOUNTER 2017-11-20 17:30 | Emergency (ER) | payer MEDICAID ==
--- NOTE | 2017-11-20 18:03 | EDPHY ---
H & P Stated Complaint: abd pain, lesions on skin Time Seen by Provider: 11/20/17 17:58 HPI/ROS: CHIEF COMPLAINT: Lesions on arms, history of MRSA infection, nausea HISTORY OF PRESENT ILLNESS: The patient has a history of narcotic dependence. She has been on Suboxone for some time. She presents to the ED today after she has developed some red lesions on her arms bilaterally. The patient is also complaining of nausea. She has had a number of complaints going on over the past several months including nausea, weight gain, reported "kidney problems", fatigue and lethargy. She has been getting some workup through her primary care provider. She reports she had an echocardiogram performed approximately week ago. The patient denies recent antibiotic use but has been on antibiotics for cellulitis in the past. Patient denies any acute chest pain or shortness of breath. She denies any IV drug use currently. REVIEW OF SYSTEMS: A comprehensive 10 point review of systems is otherwise negative aside from elements mentioned in the history of present illness. Source: Patient Exam Limitations: No limitations - Personal History LMP (Females 10-55): 1-7 Days Ago Current Tetanus/Diphtheria Vaccine: Yes Current Tetanus Diphtheria and Acellular Pertussis (TDAP): Yes - Medical/Surgical History Hx Asthma: No Hx Chronic Respiratory Disease: No Hx Diabetes: No Hx Cardiac Disease: No Hx Renal Disease: No Hx Cirrhosis: No Hx Alcoholism: No Hx HIV/AIDS: No Hx Splenectomy or Spleen Trauma: No Other PMH: neuropathy bilat feet/hands, plantar fascitis, CHRONIC PAIN, hep c, PNA, MRSA, opiod abuse - Social History Smoking Status: Current every day smoker - Physical Exam Exam: General Appearance: Alert, no acute distress Eyes: Pupils equal and round no pallor or injection ENT, Mouth: Mucous membranes moist Respiratory: There are no retractions, lungs are clear to auscultation Cardiovascular: Regular rate and rhythm Gastrointestinal: Minimal abdominal tenderness, no peritoneal signs Neurological: 5/5 strength all 4 extremities Skin: Follicular cellulitis noted to the bilateral upper extremities Musculoskeletal: Neck is supple nontender Extremities: symmetrical, full range of motion Constitutional: Initial Vital Signs Temperature (C) 36.8 C 11/20/17 17:38 Heart Rate 66 11/20/17 17:38 Respiratory Rate 16 11/20/17 17:38 Blood Pressure 140/78 H 11/20/17 17:38 O2 Sat (%) 96 11/20/17 17:38 O2 Delivery Mode Room Air Allergies/Adverse Reactions: quetiapine fumarate [From Seroquel] Allergy (Mild, Verified 11/20/17 17:37) dystonia sulfamethoxazole [From Bactrim] Allergy (Verified 11/20/17 17:37) trimethoprim [From Bactrim] Allergy (Verified 11/20/17 17:37) Home Medications: Medication Instructions Recorded GABAPENTIN 06/20/17 Mupirocin 2% [Bactroban 2%] 1 nadia TP BID #60 g 09/27/17 Medical Decision Making ED Course/Re-evaluation: The patient presents to the ED with 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 It is simple cellulitis without evidence of abscess or septic arthritis. The patient has no clinical evidence of necrotizing fasciitis. The patient's vital signs are stable. Additionally the patient is having symptoms of mild nausea. She denies additional acute complaints. The patient has a allergy to Bactrim according to her medical records here. The patient will be discharged home with a prescription for doxycycline and Zofran for nausea. The patient's laboratory studies including CBC and serum chemistries are normal. She has no evidence of renal impairment. Differential Diagnosis: Differential diagnosis considered includes cellulitis, abscess, necrotizing fasciitis - Data Points Laboratory Results: Laboratory Results 11/20/17 19:20 11/20/17 19:20 11/20/17 11/20/17 19:20 19:20 WBC 8.71 10^3/uL 10^3/uL (3.80-9.50) RBC 4.71 10^6/uL 10^6/uL (4.18-5.33) Hgb 14.9 g/dL g/dL (12.6-16.3) Hct 40.9 % % (38.0-47.0) MCV 86.8 fL fL (81.5-99.8) MCH 31.6 pg pg (27.9-34.1) MCHC 36.4 g/dL g/dL (32.4-36.7) RDW 13.1 % % (11.5-15.2) Plt Count 251 10^3/uL 10^3/uL (150-400) MPV 9.1 fL fL (8.7-11.7) Neut % (Auto) 60.1 % % (39.3-74.2) Lymph % (Auto) 34.6 % % (15.0-45.0) [place] % (Auto) 4.0 % L % (4.5-13.0) Eos % (Auto) 0.8 % % (0.6-7.6) Baso % (Auto) 0.3 % % (0.3-1.7) Nucleat RBC Rel Count 0.0 % % (0.0-0.2) Absolute Neuts (auto) 5.23 10^3/uL 10^3/uL (1.70-6.50) Absolute Lymphs (auto) 3.01 10^3/uL H 10^3/uL (1.00-3.00) Absolute Monos (auto) 0.35 10^3/uL 10^3/uL (0.30-0.80) Absolute Eos (auto) 0.07 10^3/uL 10^3/uL (0.03-0.40) Absolute Basos (auto) 0.03 10^3/uL 10^3/uL (0.02-0.10) Absolute Nucleated RBC 0.00 10^3/uL 10^3/uL (0-0.01) Immature Gran % 0.2 % % (0.0-1.1) Immature Gran # 0.02 10^3/uL 10^3/uL (0.00-0.10) Sodium 139 mEq/L mEq/L (135-145) Potassium 4.9 mEq/L mEq/L (3.5-5.2) Chloride 103 mEq/L mEq/L (97-110) Carbon Dioxide 25 mEq/l mEq/l (22-31) Anion Gap 11 mEq/L mEq/L (8-16) BUN 9 mg/dL mg/dL (7-23) Creatinine 0.6 mg/dL mg/dL (0.6-1.0) Estimated GFR > 60 Glucose 92 mg/dL mg/dL (70-100) Calcium 9.2 mg/dL mg/dL (8.5-10.4) Specimen Hemolysis 179 Departure - Departure Disposition: Home, Routine, Self-Care Clinical Impression: Cellulitis Condition: Good Instructions: Cellulitis (ED) Additional Instructions: 1. Please take doxycycline as prescribed for next 10 days. 2. Zofran as needed for nausea. 3. Please schedule a follow-up appointment with your primary care provider. 4. Your laboratory testing including kidney function is within normal limits. Referrals: Kami Gay MD [Primary Care Provider] - As per Instructions
[2017-11-20 19:30] LABS: PLATELET COUNT 251 10^3/uL (150-400)
[2017-11-20 20:11] VITALS: BP 122/60
== END 2017-11-20 20:11 | disposition home or self-care (01) ==
DX: L03.113 Cellulitis of right upper limb (principal); L03.114 Cellulitis of left upper limb; F17.200 Nicotine dependence, unspecified, uncomplicated

== ENCOUNTER 2017-12-10 19:14 | Emergency (ER) | payer MEDICAID ==
--- NOTE | 2017-12-10 19:31 | CPEKG ---
Heart Rate: 64 RR Interval: 938 P-R Interval: 188 QRSD Interval: 94 QT Interval: 420 QTC Interval: 434 P Hodges: 29 QRS Hodges: 2 T Wave Hodges: 32 EKG Severity - NORMAL ECG - EKG Impression: SINUS RHYTHM Electronically Signed By: Cristian France 12-Dec-2017 09:54:42
--- NOTE | 2017-12-10 19:32 | EDPHY ---
H & P Time Seen by Provider: 12/10/17 19:21 HPI/ROS: CHIEF COMPLAINT: Chest pain HISTORY OF PRESENT ILLNESS: Patient is a 47-year-old female who presents to the emergency department with chest pain under her left breast. Pain started approximately 6 hr ago. It has been fairly constant. She felt a at slightly worse over the last hr and half. She states her pain is making her anxious. Patient states that she has a history of chronic pain. She was weaned off her pain medication and started on gabapentin. However, her physician thinks that the gabapentin may be causing some of her symptoms over the past month and a half. She has had increase anxiety, fatigue, lower extremity edema. Patient has a history of a MRSA. Her primary care physician, Dr. Brock, heard a murmur inset and follow up with Cardiology. Dr. Clark evaluated the patient and she had a negative echo. Patient denies any shortness of breath. No fevers or chills. No cough. REVIEW OF SYSTEMS: My complete review of systems is negative except as mentioned in the HPI. Past Medical/Surgical History: Includes chronic pain, neuropathy, plantar fasciitis, hepatitis-C, pneumonia, MRSA, opioid abuse Social history: The patient smokes daily. No drug use. Smoking Status: Current every day smoker Physical Exam: Vitals noted GENERAL: Mildly anxious, in no acute distress, alert. HEENT: Eyes normal to inspection, normal pharynx, no signs of dehydration. NECK: [No thyromegaly, no lymphadenopathy, supple. RESPIRATORY: Clear to auscultation bilaterally, no rales, rhonchi or wheezing. CVS: Regular rate and rhythm, no rubs, murmurs, or gallops. ABDOMEN: Soft, nontender, nondistended, no organomegaly. BACK: Normal to inspection, no CVA tenderness. SKIN: Normal color, no rash, warm, dry. No pallor. EXTREMITIES: There is some white patchy skin discoloration on her bilateral upper extremities. This does not appear acute. There is no cellulitis. No visible rash. No pedal edema, no calf tenderness, no Homans sign or cords, no joint swelling. NEURO/PSYCH: Alert and oriented, mildly anxious, normal motor sensory exam. Constitutional: Initial Vital Signs Heart Rate 73 12/10/17 19:15 Respiratory Rate 26 H 12/10/17 19:15 Blood Pressure 126/71 H 12/10/17 19:15 O2 Sat (%) 95 12/10/17 19:15 O2 Delivery Mode Room Air Allergies/Adverse Reactions: quetiapine fumarate [From Seroquel] Allergy (Mild, Verified 12/10/17 19:18) dystonia sulfamethoxazole [From Bactrim] Allergy (Verified 12/10/17 19:18) trimethoprim [From Bactrim] Allergy (Verified 12/10/17 19:18) Home Medications: Medication Instructions Recorded GABAPENTIN 06/20/17 Mupirocin 2% [Bactroban 2%] 1 nadia TP BID #60 g 09/27/17 Ondansetron Odt [Zofran Odt] 4 mg PO Q4PRN PRN #20 tab 11/20/17 Phenergan 12/10/17 SUBOXONE 8mg/2mg 12/10/17 Medical Decision Making - Diagnostics Imaging Results: Imaging Impressions Chest X-Ray 12/10/17 19:27 Impression: 1. Suspect airways disease. 2. See above report for additional findings. ED Course/Re-evaluation: In the emergency department I discussed possible etiologies with the patient. I answered all her questions. Patient states she took 4 baby aspirin prior to arrival. An IV was placed. Laboratory studies, EKG and chest x-ray were obtained. EKG shows normal sinus rhythm, normal rate, normal axis, normal intervals. There are no ST or T-wave abnormalities. EKG is normal as interpreted by me. Patient's CBC was unremarkable. The patient's troponin is negative. Mildly elevated total bilirubin. Chest x-ray: Please refer the dictated report. Airway disease. No acute abnormality. 2210: I rechecked the patient. She is feeling well with no complaints of chest pain. I discussed all results. I answered her questions. Patient was given warnings prior to leaving. She will return with worsening symptoms. Differential Diagnosis: My differential includes but is not limited to ACS, acute SC, pulmonary embolus , bronchitis, pneumonia, zoster, anxiety - Data Points Laboratory Results: Laboratory Results 12/10/17 19:49 12/10/17 19:49 12/10/17 12/10/17 19:49 19:49 WBC 8.88 10^3/uL 10^3/uL (3.80-9.50) RBC 4.79 10^6/uL 10^6/uL (4.18-5.33) Hgb 15.1 g/dL g/dL (12.6-16.3) Hct 41.2 % % (38.0-47.0) MCV 86.0 fL fL (81.5-99.8) MCH 31.5 pg pg (27.9-34.1) MCHC 36.7 g/dL g/dL (32.4-36.7) RDW 13.2 % % (11.5-15.2) Plt Count 272 10^3/uL 10^3/uL (150-400) MPV 9.6 fL fL (8.7-11.7) Neut % (Auto) 39.7 % % (39.3-74.2) Lymph % (Auto) 51.7 % H % (15.0-45.0) [place] % (Auto) 6.1 % % (4.5-13.0) Eos % (Auto) 1.6 % % (0.6-7.6) Baso % (Auto) 0.6 % % (0.3-1.7) Nucleat RBC Rel Count 0.0 % % (0.0-0.2) Absolute Neuts (auto) 3.53 10^3/uL 10^3/uL (1.70-6.50) Absolute Lymphs (auto) 4.59 10^3/uL H 10^3/uL (1.00-3.00) Absolute Monos (auto) 0.54 10^3/uL 10^3/uL (0.30-0.80) Absolute Eos (auto) 0.14 10^3/uL 10^3/uL (0.03-0.40) Absolute Basos (auto) 0.05 10^3/uL 10^3/uL (0.02-0.10) Absolute Nucleated RBC 0.00 10^3/uL 10^3/uL (0-0.01) Immature Gran % 0.3 % % (0.0-1.1) Immature Gran # 0.03 10^3/uL 10^3/uL (0.00-0.10) Sodium 139 mEq/L mEq/L (135-145) Potassium 5.0 mEq/L mEq/L (3.3-5.0) Chloride 104 mEq/L mEq/L (97-110) Carbon Dioxide 22 mEq/l mEq/l (22-31) Anion Gap 13 mEq/L mEq/L (8-16) BUN 12 mg/dL mg/dL (7-23) Creatinine 0.8 mg/dL mg/dL (0.6-1.0) Estimated GFR > 60 Glucose 106 mg/dL H mg/dL (70-100) Calcium 9.3 mg/dL mg/dL (8.5-10.4) Total Bilirubin 1.8 mg/dL H mg/dL (0.1-1.4) Conjugated Bilirubin 0.9 mg/dL H mg/dL (0.0-0.5) Unconjugated Bilirubin 0.9 mg/dL mg/dL (0.0-1.1) AST 41 IU/L IU/L (14-46) ALT 14 IU/L IU/L (9-52) Alkaline Phosphatase 100 IU/L IU/L (38-126) Troponin I 0.022 ng/mL ng/mL (0.000-0.034) NT-Pro-B Natriuret Pep 162 pg/mL H pg/mL (0-125) Total Protein 8.0 g/dL g/dL (6.3-8.2) Albumin 4.6 g/dL g/dL (3.5-5.0) Lipase 74 IU/L IU/L (23-300) Specimen Hemolysis 208 Departure - Departure Disposition: Home, Routine, Self-Care Clinical Impression: Chest pain Qualifiers: Chest pain type: unspecified Qualified Code(s): R07.9 - Chest pain, unspecified Condition: Good Instructions: Chest Pain (ED) Additional Instructions: Return with increasing chest pain, shortness of breath, fever or any other concerns. Referrals: Kami Gay MD [Primary Care Provider] - 2-3 days without fail
[2017-12-10 19:57] LABS: PLATELET COUNT 272 10^3/uL (150-400)
[2017-12-10 22:25] VITALS: BP 126/81
== END 2017-12-10 22:24 | disposition home or self-care (01) ==
DX: R07.9 Chest pain, unspecified (principal); F17.200 Nicotine dependence, unspecified, uncomplicated

== ENCOUNTER 2018-01-11 23:59 | Emergency (ER) | payer MEDICAID ==
--- NOTE | 2018-01-12 01:34 | EDPHY ---
General Time Seen by Provider: 01/12/18 01:30 Narrative: CHIEF COMPLAINT: "myriad of things" HISTORY OF PRESENT ILLNESS: Patient presents with complaints of "myriad of problems." She complains of multiple areas "skin problems. There are fungus balls there, and black heads." She reports that they are painful in the, ago. She cannot show me any of these areas at this time however. They involve her arms, legs and scalp. She also has some headache with this, some swelling of the arms and legs, some flank pain , some abdominal pain and she feels that "I definitely have a fungal infection. " She says that this has been going on for 15 months without resolution. She has been seen multiple times by various providers. She is currently being seen by her primary care physician and Infectious Disease. She has no chest pain. She does have diagnosis of murmur that was worked up by Cardiology with echocardiogram. No other associated complaints or modifying factors. REVIEW OF SYSTEMS: Ten systems reviewed and are negative unless otherwise noted in the HPI PCP: Dr. Gay SPECIALISTS: [facility] PAST MEDICAL HISTORY: Neuropathy, chronic pain, plantar fasciitis, pneumonia, hep C, MRSA, opioid abuse, previous heroin abuse PAST SURGICAL HISTORY: No recent surgeries SOCIAL HISTORY: Patient's independently. She denies any recent drug use. She reports being sober from any illicit substances since April FAMILY HISTORY: Noncontributory EXAMINATION General Appearance: Alert, no distress. Well-developed well-nourished. Fidgeting and anxious Head: normocephalic, atraumatic Eyes: Pupils equal and round, no conjunctival pallor or injection ENT, Mouth: Mucous membranes moist Neck: Normal inspection, supple, non-tender. No meningismus or rigidity Respiratory: No retractions or distress Cardiovascular: Regular rate. Good signs of perfusion with symmetric distal pulses. Neurological: A&O, nonfocal, normal gait Skin: Warm and dry. Multiple areas of excoriation on all 4 limbs. There is also some involvement of the scalp. No areas of cellulitis or abscess. No punctures or lacerations Extremities: Generalized tenderness of lower extremities. No edema. No signs of DVT. Psychiatric: Fidgeting anxious. Difficulty the focusing with her history DIFFERENTIAL DIAGNOSES: Including but not limited to pyelonephritis, excoriations, IV drug use, schizophrenia, dehydration, candidiasis, UTI MDM: 1:37 a.m. Multiple complaints involving her skin, flank and scalp bearing for 15 months. I do appreciate multiple areas of excoriations on the skin of various stages of healing. The patient denies any current IV drug use but reports previous drug use. She has no chest pain or shortness of breath. She has occasional headache but not at this time. She has no meningismus or abnormal findings other than the skin changes. Her vital signs are within normal limits. At her request I am checking laboratory studies and urinalysis. She has also requested urine drug screen. 2:13 a.m. Urinalysis unremarkable. Urine drug screen is positive for benzodiazepine, amphetamine and marijuana. Laboratory studies pending. 2:30 a.m. Notified the patient has had multiple blood draw attempts have been unsuccessful. I have re-evaluated her, and I do feel it is reasonable to cancel laboratory studies. Her urinalysis is negative, my primary concern was to rule out UTI or pyelonephritis. We have done this with normal urination. Also clinically, I feel this is highly unlikely. I do feel she just after strong multiple excoriations from substance abuse and/or anxiety, and she would benefit from dermatology referral. She will contact her primary care physician and steward/stewardess tourist class as provided. She is discharged home stable condition. SUPERVISION: This patient was independently evaluated without direct involvement of or examination by the attending physician. - History Smoking Status: Current every day smoker - Objective Vital Signs: Initial Vital Signs Temperature (C) 98.2 F 01/12/18 00:06 Heart Rate 105 H 01/12/18 00:06 Respiratory Rate 18 01/12/18 00:06 Blood Pressure 141/99 H 01/12/18 00:06 O2 Sat (%) 95 01/12/18 00:06 O2 Delivery Mode Room Air Allergies/Adverse Reactions: quetiapine fumarate [From Seroquel] Allergy (Mild, Verified 12/10/17 19:18) dystonia sulfamethoxazole [From Bactrim] Allergy (Verified 12/10/17 19:18) trimethoprim [From Bactrim] Allergy (Verified 12/10/17 19:18) Home Medications: Medication Instructions Recorded GABAPENTIN 06/20/17 Mupirocin 2% [Bactroban 2%] 1 nadia TP BID #60 g 09/27/17 Phenergan 12/10/17 SUBOXONE 8mg/2mg 12/10/17 Departure - Departure Disposition: Home, Routine, Self-Care Clinical Impression: Multiple excoriations, Neuropathy, Flank pain Condition: Good Instructions: Dermatitis (ED) Additional Instructions: 1. Contact primary care physician and Dermatology for outpatient care 2. ED precautions for worsening pain, fever, chills Referrals: Kami Gay MD [Primary Care Provider] - As per Instructions Viadl Tobias MD [Medical Doctor] - As per Instructions
[2018-01-12 02:56] VITALS: BP 124/100
== END 2018-01-12 02:56 | disposition home or self-care (01) ==
DX: R10.9 Unspecified abdominal pain (principal); F42.4 Excoriation (skin-picking) disorder; G62.9 Polyneuropathy, unspecified; F17.200 Nicotine dependence, unspecified, uncomplicated
CPT/HCPCS: 80305

== ENCOUNTER 2018-06-19 10:17 | Emergency (ER) | payer MEDICAID ==
[2018-06-19 10:39] VITALS: BP 123/101
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
== END 2018-06-19 11:35 | disposition home or self-care (01) ==
DX: S16.1XXA Strain of muscle, fascia and tendon at neck level, initial encounter (principal); V49.49XA Driver injured in collision with other motor vehicles in traffic accident, initial encounter; Y92.410 Unspecified street and highway as the place of occurrence of the external cause

== ENCOUNTER 2018-10-17 04:21 | Emergency (ER) | payer MEDICAID ==
--- NOTE | 2018-10-17 06:30 | EDPHY ---
H & P Stated Complaint: Generalized rash from water, Wound behind L ear, multiple compliants Source: Patient Exam Limitations: No limitations - Personal History LMP (Females 10-55): Irregular Current Tetanus Diphtheria and Acellular Pertussis (TDAP): Yes Tetanus Vaccine Date: 2009 - Medical/Surgical History Hx Asthma: No Hx Chronic Respiratory Disease: No Hx Diabetes: No Hx Cardiac Disease: No Hx Renal Disease: No Hx Cirrhosis: No Hx Alcoholism: No Hx HIV/AIDS: No Hx Splenectomy or Spleen Trauma: No Other PMH: neuropathy bilat feet/hands, plantar fascitis, CHRONIC PAIN, hep c, PNA, MRSA, opiod abuse, heart murmur, LE edema - Social History Smoking Status: Light smoker Time Seen by Provider: 10/17/18 05:36 HPI/ROS: HPI The patient presents with left-sided neck swelling and pain which has been present for an unspecified amount of time. Patient comes to the emergency department upon the urging of her primary care doctor at [facility] after seeing her in the clinic yesterday. She has had some pain behind her left ear and a rash. It has gotten progressively worse and now is ulcerated. She is having pain now in her throat and ear. She has not had a fever. She has multiple skin lesions throughout her extremities and says they are of uncertain origin. She says she has a history of IV drug use, however has been clean for several years.. REVIEW OF SYSTEMS 10 systems were reviewed and negative with the exception of the elements mentioned in the history of present illness. PMHx: History of opiate abuse Soc Hx: Followed at [facility] PHYSICAL General Appearance: Alert, no distress Eyes: Pupils equal and round no pallor or injection ENT, Mouth: Mucous membranes moist, full range of motion of neck, in the postauricular region there is a 2 cm shallow ulceration with no active drainage with yellowish granulation tissue, there is surrounding bright erythema which is slightly tender to palpation. There is mastoid tenderness. Respiratory: There are no retractions, lungs are clear to auscultation Cardiovascular: Regular rate and rhythm Gastrointestinal: Abdomen is soft and non-tender, no masses, bowel sounds normal Neurological: A&O, moves all extremities Skin: Warm and dry, hypopigmented rash throughout arms and legs Musculoskeletal: Neck is supple non tender Extremities: symmetrical, full range of motion Psychiatric: Patient is oriented X 3, there is no agitation (Riguzzi,Nafisa) Constitutional: Initial Vital Signs Heart Rate 73 10/17/18 04:25 Respiratory Rate 16 10/17/18 04:25 Blood Pressure 150/100 H 10/17/18 04:25 O2 Sat (%) 98 10/17/18 04:25 O2 Delivery Mode Room Air Allergies/Adverse Reactions: Iodinated Contrast- Oral and IV Dye Allergy (Mild, Verified 10/17/18 08:01) Other-Enter Comments quetiapine fumarate [From Seroquel] Allergy (Mild, Verified 10/17/18 04:24) dystonia sulfamethoxazole [From Bactrim] Allergy (Verified 10/17/18 04:24) trimethoprim [From Bactrim] Allergy (Verified 10/17/18 04:24) Home Medications: Medication Instructions Recorded GABAPENTIN 06/20/17 Phenergan 12/10/17 SUBOXONE 8mg/2mg 12/10/17 Cyclobenzaprine 02/20/18 Clindamycin HCl [Clindamycin] 300 mg PO TID #30 cap 10/17/18 Mupirocin 2% [Bactroban 2%] 1 nadia TOP BID #1 ointtube 10/17/18 Medical Decision Making - Diagnostics Imaging Results: Imaging Impressions Neck CT 10/17/18 05:47 Impression: [place] superficial soft tissue swelling in the region of the patient' s ulceration. No abscess or pathologic adenopathy identified. Results called to Dr. Ruth at 7:45 AM. General information for patients regarding this examination can be found at [email or web address]. If you have questions or comments about this report, please contact me at [phone](hospital) or [phone] (cell). ED Course/Re-evaluation: 7:30 a.m.-I assumed care of this patient at shift change. CT scan of the neck with IV contrast interpreted by Dr. Weaver reveals soft tissue swelling, no deep space infection or abscess. Results discussed with the patient. On exam, there is an approx 3cm area of erythema behind the left ear with an open wound centrally, no fluctuance. h/o MRSA, receiving IV Vancomycin now. No indication for admission. Pt nontoxic appearing, afebrile and tolerating oral fluids well. I will place her on Clindamycin (allergy to Bactrim) and Bactroban. She will follow up with her strategic planner. Warning signs discussed. (Luh Ruth) Differential Diagnosis: This is a 48-year-old female with reported prior history of IV drug use though none currently who presents as instructed by primary care for left-sided neck swelling with ulceration present. Given this location over the mastoid, I will perform CT scan for further evaluation of mastoiditis. Would also consider deep space neck infection. This could be an ulceration related to drug use. I will presumptively treat with IV vancomycin given the patient has a history of MRSA. At change of shift, case will be signed out to the oncoming provider Dr. Ruth. Patient is awaiting her CT scan. (Nafisa Lozano) - Data Points Laboratory Results: Laboratory Results 10/17/18 06:30 10/17/18 10/17/18 10/17/18 06:37 06:30 06:25 WBC 7.55 10^3/uL 10^3/uL (3.80-9.50) RBC 4.48 10^6/uL 10^6/uL (4.18-5.33) Hgb 14.3 g/dL g/dL (12.6-16.3) POC Hgb 13.9 gm/dL gm/dL (12.6-16.3) Hct 40.6 % % (38.0-47.0) POC Hct 41 % % (38-47) MCV 90.6 fL fL (81.5-99.8) MCH 31.9 pg pg (27.9-34.1) MCHC 35.2 g/dL g/dL (32.4-36.7) RDW 12.8 % % (11.5-15.2) Plt Count 298 10^3/uL 10^3/uL (150-400) MPV 9.1 fL fL (8.7-11.7) Neut % (Auto) 50.1 % % (39.3-74.2) Lymph % (Auto) 38.8 % % (15.0-45.0) Mckenzie % (Auto) 7.2 % % (4.5-13.0) Eos % (Auto) 3.2 % % (0.6-7.6) Baso % (Auto) 0.4 % % (0.3-1.7) Nucleat RBC Rel Count 0.0 % % (0.0-0.2) Absolute Neuts (auto) 3.79 10^3/uL 10^3/uL (1.70-6.50) Absolute Lymphs (auto) 2.93 10^3/uL 10^3/uL (1.00-3.00) Absolute Monos (auto) 0.54 10^3/uL 10^3/uL (0.30-0.80) Absolute Eos (auto) 0.24 10^3/uL 10^3/uL (0.03-0.40) Absolute Basos (auto) 0.03 10^3/uL 10^3/uL (0.02-0.10) Absolute Nucleated RBC 0.00 10^3/uL 10^3/uL (0-0.01) Immature Gran % 0.3 % % (0.0-1.1) Immature Gran # 0.02 10^3/uL 10^3/uL (0.00-0.10) POC Sodium 140 mEq/L mEq/L (135-145) POC Potassium 3.6 mEq/L mEq/L (3.3-5.0) POC Chloride 106 mEq/L mEq/L (97-110) POC Total CO2 20 mEq/L L mEq/L (22-31) POC BUN 17 mg/dL mg/dL (7-23) POC Creatinine 0.7 mg/dL mg/dL (0.6-1.0) POC Glucose 113 mg/dL H mg/dL (70-100) Urine Opiates Screen NEGATIVE (NEGATIVE) Urine Barbiturates NEGATIVE (NEGATIVE) Ur Phencyclidine Scrn NEGATIVE (NEGATIVE) Ur Amphetamine Screen NEGATIVE (NEGATIVE) U Benzodiazepines Scrn NEGATIVE (NEGATIVE) Urine Cocaine Screen NEGATIVE (NEGATIVE) U Marijuana (THC) Screen NEGATIVE (NEGATIVE) Medications Given: Discontinued Medications Vancomycin HCl 1.5 gm/ (Dextrose) 250 mls @ 166.67 mls/hr IV EDNOW ONE PRN Reason: Protocol Stop: 10/17/18 08:00 Last Admin: 10/17/18 07:57 Dose: 250 mls Point of Care Test Results: Chemistry 10/17/18 06:37 POC Sodium 140 mEq/L mEq/L (135-145) POC Potassium 3.6 mEq/L mEq/L (3.3-5.0) POC Chloride 106 mEq/L mEq/L (97-110) POC Total CO2 20 mEq/L L mEq/L (22-31) POC BUN 17 mg/dL mg/dL (7-23) POC Creatinine 0.7 mg/dL mg/dL (0.6-1.0) POC Glucose 113 mg/dL H mg/dL (70-100) ISTAT H&H 10/17/18 06:37 POC Hgb 13.9 gm/dL gm/dL (12.6-16.3) POC Hct 41 % % (38-47) Departure - Departure Disposition: Home, Routine, Self-Care Clinical Impression: Cellulitis Qualifiers: Site of cellulitis: neck Qualified Code(s): L03.221 - Cellulitis of neck Condition: Good Instructions: Cellulitis (ED) Additional Instructions: 1. Wash the area 3 times daily with soap and water. Apply an antibiotic ointment after washing. Avoid excessive touching or picking of the wound. 2. Follow-up with your strategic planner in 1-2 days. 3. Return for worsening symptoms or any concerns. 4. Take antibiotics as prescribed. Referrals: Kami Gay MD [Primary Care Provider] - As per Instructions Prescriptions: Clindamycin HCl [Clindamycin] 300 mg PO TID #30 cap Mupirocin 2% [Bactroban 2%] 1 nadia TOP BID #1 ointtube
[2018-10-17] MEDS ORDERED: VANCOMYCIN 1.5 GM in D5W 250 ML IV ONE (06:31)
[2018-10-17 06:47] LABS: PLATELET COUNT 298 10^3/uL (150-400)
[2018-10-17] MEDS ORDERED: IOPAMIDOL (ISOVUE-300) 100 ML BTL ONE (06:47)
[2018-10-17 09:30] VITALS: BP 113/77
== END 2018-10-17 09:32 | disposition home or self-care (01) ==
DX: R21 Rash and other nonspecific skin eruption (principal); L03.221 Cellulitis of neck
CPT/HCPCS: 80305; 82435-PO; 82565-PO; 82947-PO; 84132-PO; 84295-PO; 84520-PO; 85014-ER; 96374; J3370; Q9967